=== PATIENT | female | born 1945 ===

== ENCOUNTER 2017-06-24 09:10 | Day surgery (SDC) | payer MEDICARE, BC ==
[2017-06-24] MEDS ORDERED: ACETAZOLAMIDE 250 MG PO ONE (09:34)
[2017-06-24] MEDS: CYCLOPENTOLATE 1% SOL ONE ×3 (09:45→10:04)
[2017-06-24] MEDS: KETOROLAC 0.5% OPTH 60 DROP SOL ONE ×3 (09:46→10:04)
[2017-06-24] MEDS: PROPARACAINE HCL 0.5% OPHTHALMIC SOL ONE ×4 (09:46→11:19)
[2017-06-24] MEDS ORDERED: PHENYLEPHRINE HCL 10% OPHTHAL SOL RIGHTEYE ONE ×2 (09:47→09:55)
[2017-06-24] MEDS ORDERED: FENTANYL 100MCG/2ML SOL ONE (10:50)
[2017-06-24] MEDS ORDERED: BSS 500 ML 500 ML IR ONE (11:13)
[2017-06-24] MEDS ORDERED: POVIDONE IODINE 5% SOL ONE (11:13)
[2017-06-24] MEDS ORDERED: LIDOCAINE HCL 1% MPF SOL ONE (11:13)
[2017-06-24] MEDS ORDERED: MIDAZOLAM 2 MG/2 ML SOL ONE (11:15)
[2017-06-24 12:35] VITALS: O2SAT 94
== END 2017-06-24 12:32 | disposition home or self-care (01) | DRG 125 ==
LOC: SURG 09:10
PROVIDERS: ATTEND Ophthalmology
DX: H25.9 Unspecified age-related cataract (principal)
CPT/HCPCS: J2250; J3010; A9270-GY; J2001

== ENCOUNTER 2017-07-22 06:47 | Day surgery (SDC) | payer MEDICARE, BC ==
[~2017-07-22 06:47] MED LIST: LIDOCAINE HCL 1% MPF SOL ONE; PROPOFOL 500 MG/50 ML EMU IV ONE
[2017-07-22] MEDS ORDERED: ACETAZOLAMIDE 250 MG PO ONE (06:59)
[2017-07-22 07:05] VITALS: O2SAT 97
[2017-07-22] MEDS: PROPARACAINE HCL 0.5% OPHTHALMIC SOL ONE ×3 (07:13→08:26)
[2017-07-22] MEDS: KETOROLAC 0.5% OPTH 60 DROP SOL ONE ×2 (07:13→07:26)
[2017-07-22] MEDS: PHENYLEPHRINE HCL 10% OPHTHAL SOL ONE ×2 (07:13→07:26)
[2017-07-22] MEDS: CYCLOPENTOLATE 1% SOL ONE ×2 (07:13→07:25)
[2017-07-22] MEDS ORDERED: MIDAZOLAM 2 MG/2 ML SOL ONE (07:22)
[2017-07-22] MEDS ORDERED: ONDANSETRON HCL 4 MG/2 ML SOL ONE (07:22)
[2017-07-22] MEDS ORDERED: LIDOCAINE HCL 1% MPF SOL ONE (08:00)
[2017-07-22] MEDS ORDERED: POVIDONE IODINE 5% SOL ONE (08:00)
[2017-07-22] MEDS ORDERED: TRIAMCINOLONE ACETONIDE 10 MG/ML VIAL ONE (08:00)
[2017-07-22] MEDS ORDERED: BSS 500 ML 500 ML IR ONE (08:00)
== END 2017-07-22 09:15 | disposition home or self-care (01) | DRG 125 ==
LOC: SURG 06:47
PROVIDERS: ATTEND Ophthalmology
DX: H25.9 Unspecified age-related cataract (principal)
CPT/HCPCS: J2250; J2405; A9270-GY; J2001; J2704